=== PATIENT | female | born 1975 | race Two or more races ===

== ENCOUNTER 2019-10-08 22:40 | Emergency (ER) | payer OTHER ==
[~2019-10-08] VITALS: Ht 162.6 cm; Wt 81.6 kg
[2019-10-08 22:50] VITALS: BP 140/87
--- NOTE | 2019-10-08 22:54 | NUR ---
PT TRIAGED AND BACK TO LOBBY.
--- NOTE | 2019-10-08 23:12 | NUR ---
Dr. Guevara examining patient.
[2019-10-08 23:40] VITALS: BP 140/87
--- NOTE | 2019-10-08 23:40 | NUR ---
Patient discharged with v/s stable. Written and verbal after care instructions given and explained. Patient alert, oriented and verbalized understanding of instructions. Ambulatory with steady gait. All questions addressed prior to discharge. ID band removed. Patient advised to follow up with PMD. Rx of POLYSPORIN given. Patient educated on indication of medication including possible reaction and side effects. Opportunity to ask questions provided and answered.
--- NOTE | 2019-10-08 23:41 | NUR ---
PT SEEN AND D/C'D BEFORE PRIMARY NURSE COULD ASSESS
== END 2019-10-08 23:41 | disposition home or self-care (01) ==
LOC: MED 22:40
DX: S90.861A Insect bite (nonvenomous), right foot, initial encounter (principal); W57.XXXA Bitten or stung by nonvenomous insect and other nonvenomous arthropods, initial encounter; Y93.89 Activity, other specified; Y92.89 Other specified places as the place of occurrence of the external cause; Y99.8 Other external cause status
CPT/HCPCS: 99282